=== PATIENT | female | born 1975 | race Caucasian/White ===

== ENCOUNTER 2020-05-18 09:23 | Emergency (ER) | payer OTHER ==
[~2020-05-18] VITALS: Ht 165.1 cm; Wt 105.2 kg
[2020-05-18 09:28] VITALS: Ht 165.1 cm; Wt 105.2 kg
[2020-05-18 11:52] VITALS: BP 150/89
== END 2020-05-18 11:52 | disposition home or self-care (01) ==
LOC: ED 09:23
DX: R60.0 Localized edema (principal); I10 Essential (primary) hypertension; E03.9 Hypothyroidism, unspecified; E66.8 Other obesity; Z68.38 Body mass index [BMI] 38.0-38.9, adult; Z90.710 Acquired absence of both cervix and uterus; Z88.2 Allergy status to sulfonamides
CPT/HCPCS: 82962; Q0092